=== PATIENT | male | born 1955 | race Caucasian/White ===

== ENCOUNTER 2017-07-08 14:57 | Emergency (ER) | payer OTHER ==
[~2017-07-08] VITALS: Ht 172.7 cm; Wt 111.1 kg
[2017-07-08] MEDS ORDERED: METFORMIN HCL500 MG PO (15:06)
[2017-07-08] MEDS ORDERED: LISINOPRIL5 MG PO (15:06)
[2017-07-08] MEDS ORDERED: ATROVENT NASAL SPRAY NASAL (17:03)
[2017-07-08] MEDS ORDERED: VALIUM2 MG PO (17:03)
[2017-07-08 17:29] VITALS: BP 144/87
== END 2017-07-08 17:31 | disposition home or self-care (01) ==
LOC: M.ERS 14:57
DX: R42 Dizziness and giddiness (principal); I10 Essential (primary) hypertension